=== PATIENT | female | born 1995 | race Caucasian/White ===

== ENCOUNTER 2022-06-21 00:01 | Inpatient (IN) | payer BC ==
[~2022-06-21] VITALS: Ht 172.7 cm; Wt 108.4 kg
--- NOTE | ~2022-06-21 | OR ---
[facility] [address] [place], [place] [address] Draft DATE OF OPERATION: 06/23/2022 SURGEON: Carlton Servin DO PREOPERATIVE DIAGNOSIS: Gestational hypertension at 37 weeks of gestation. POSTOPERATIVE DIAGNOSES: Term , delivered. Persistent occiput posterior. Gestational hypertension. PROCEDURE: Primary low-transverse . INSPECTOR MISSILE: Dr. Alston. ANESTHESIA: Epidural and spinal. BLOOD LOSS: 600 mL. FINDING: Term viable female weighing 6 pounds 1 ounce in the left occiput posterior position. Apgars 9 and 9 at 1 and 5 minutes respectively. Normal-appearing bilateral tubes and ovaries. INDICATIONS: The patient is a 27-year-old, G1, P0, who was admitted on 06/21/2022 for scheduled induction of labor for gestational hypertension. She received cervical ripening through the morning of 06/23/2022, at which point, amniotomy was performed yielding moderate amount of clear fluid. Pitocin was started and IUPC was placed. The patient initially made change, but dilation stalled a 6 cm. The patient reported severe or complete mental physical exhaustion and had inadequate pain relief despite numerous boluses of the epidural per anesthesia and was requesting primary delivery. Risks, benefits, and alternatives were discussed at length and she elected to proceed. PROCEDURE IN DETAIL: The patient was taken the operating room where she was given 2 g Ancef and 500 mg azithromycin. Mayes was already in place from the previous epidural. The epidural was PATIENT NAME: IMANI HARPER OPERATIVE REPORT DATE OF : 97 REPORT #: [id number] PHYSICIAN: CARLTON SERVIN DO PCP: NO PRIMARY CARE PHYSICIAN REPORT IS CONFIDENTIAL AND NOT TO BE RELEASED WITHOUT AUTHORIZATION [facility] [address] [place], [place] [address] Draft bolused, but found to be in adequate. Spinal was placed by anesthesia. The patient was positioned supine with a leftward tilt. A vaginal prep was performed. She was prepped and draped in normal sterile fashion. Adequate anesthesia with spinal was confirmed. An incision was made with a scalpel in the Pfannenstiel location and carried down to underlying layer of fascia with Bovie cautery cauterizing perforating vessels. As they were encountered, fascia was nicked in midline, extended laterally using Bovie cautery. The fascia was then grasped and elevated with Kelsey clamps. Underlying rectus muscle was dissected off bluntly and sharply with Gerard scissors, thus released. Superior margin of fascia was grasped and elevated. Underlying rectus muscles were dissected off bluntly and sharply with Gerard scissors. Peritoneum was entered bluntly and extended with lateral traction. The head was noted to be within the abdomen and not engaged in the pelvis at all. At this point, Steve retractor was placed. Hysterotomy was made with a scalpel. Uterus was entered bluntly and hysterotomy was extended with gentle digital traction. Infant's head was easily elevated to the level of the hysterotomy without any difficulty and delivered through without complication. Baby gave a strong spontaneous cry, was noted to have some caput from her occiput posterior presentation. Cord was doubly clamped and cut. Baby was handed off to waiting nursery team. Cord blood was collected for type and Sukumar. Placenta was manually expressed. Uterus was cleared of clots and debris and hysterotomy was closed in a double-layer closure with 0 Monocryl in a running locked fashion. then 0 Monocryl in an imbricating manner. The pelvis was suction irrigated with warm sterile saline. Hemostasis was noted. Tubes and ovaries were inspected and found to be normal as noted above. Steve retractor was removed. Peritoneum was closed in a running fashion with 2-0 Vicryl. Rectus muscles reapproximated midline with 0 Vicryl in a simple interrupted fashion. This was then suction irrigated with warm sterile saline. Perforating vessels were cauterized with Bovie cautery. Fascia was then closed in a running fashion with 0 Vicryl working from right apex to midline and left apex to midline meeting in the middle. Subcutaneous layer was then suction irrigated with warm sterile saline. Perforating vessels were cauterized with Bovie cautery. The subcu layer was reapproximated with 3-0 Vicryl in a running fashion. The skin was closed with suture. Sponge and instrument counts were correct x2. Uterus was Crede'd and noted to be hemostatic and firm and patient remained in the OR for placement of TAP blocks per Anesthesia. Of note, one dose IV Tylenol was given per Anesthesia after patient was noted to have an elevated temperature of 101.1 Fahrenheit. Carlton Servin DO EMZ/MODL PATIENT NAME: IMANI HARPER OPERATIVE REPORT DATE OF : 97 REPORT #: [id number] PHYSICIAN: CARLTON SERVIN DO PCP: NO PRIMARY CARE PHYSICIAN REPORT IS CONFIDENTIAL AND NOT TO BE RELEASED WITHOUT AUTHORIZATION [address] [place], [place] [address] [facility] /[id number] Copies: ~ PATIENT NAME: IMANI HARPER OPERATIVE REPORT DATE OF : 97 REPORT #: [id number] PHYSICIAN: CARLTON SERVIN DO PCP: NO PRIMARY CARE PHYSICIAN REPORT IS CONFIDENTIAL AND NOT TO BE RELEASED WITHOUT AUTHORIZATION
--- NOTE | 2022-06-21 11:57 | PR ---
[facility] [address] [facility] [place], [place] [address] Signed Progress Notes IP Datetime Report Generated by CPN: 06/21/2022 11:56 PROGRESS NOTES: [id number] Impression: Reassuring Heart Rate; Gest. HTN/PreEclampsia/Eclampsia Plan: Continue Present Management; Cervical Ripening VITAL SIGNS: [id number] EXAM: [id number] Dilatation: 0.0 Effacement: 50 Station: -3 Contractions: acontractile MEMBRANES: [id number] Membranes Status: Intact Comments: Reviewed strip. Pt reports cramping is slightly more painful. Plan: after reactive NST, ok to ambulate, try birthing ball, bath. Repeat NST after one hour, if contractions have spaced continue cervical ripening. FETUS A: [id number] FHR Baseline: 130 Variability: Moderate 6-25bpm Accelerations: 15X15 Decelerations: None FHR Category: Category I Presentation: Vertex Comments on Fetus A: No evidence of acidemia FETUS B: [id number] Signing Physician: Carlton Servin DO Copies: ~ *Electronically Signed* 06/21/22 1156 CARLTON SERVIN DO PATIENT NAME: IMANI HARPER PROGRESS NOTE DATE OF : 97 PHYSICIAN: CARLTON SERVIN DO RPT #: [id number] REPORT IS CONFIDENTIAL AND NOT TO BE RELEASED WITHOUT AUTHORIZATION
--- NOTE | 2022-06-21 19:56 | PR ---
[facility] [address] [place], [place] [address] Signed Progress Notes IP Datetime Report Generated by CPBeatriz: 06/21/2022 19:56 PROGRESS NOTES: [id number] Impression: Reassuring Heart Rate Plan: Continue Present Management; Cervical Ripening VITAL SIGNS: [id number] EXAM: [id number] Dilatation: 1.0 Effacement: 50 Station: -3 Contractions: acontractile MEMBRANES: [id number] Membranes Status: Intact Comments: Pt comfortable, contraction discomfort 3/10 compared with 6-7/10 earlier in the day. Reviewed options at this point particularly cook catheter vs continued cytotec. Pt elects to proceed with cytotec, hoping to get some sleep overnight. Will continue with cytotec - if mariam too frequently, allow contraction frequency to decrease before additional doses. BP remain normotensive FETUS A: [id number] FHR Baseline: 130 Variability: Moderate 6-25bpm Accelerations: 15X15 Decelerations: None FHR Category: Category I Presentation: Vertex Comments on Fetus A: No evidence of acidemia FETUS B: [id number] Signing Physician: Carlton Servin DO Copies: ~ *Electronically Signed* 06/21/221955 CARLTON SERVIN DO PATIENT NAME: IMANI HARPER PROGRESS NOTE DATE OF : 97 PHYSICIAN: CARLTON SERVIN #: [id number] REPORT IS CONFIDENTIAL AND NOT TO BE RELEASED WITHOUT AUTHORIZATION
--- NOTE | 2022-06-22 07:42 | PR ---
[facility] [address] [facility] [place], [place] [address] Signed Progress Notes IP Datetime Report Generated by CPN: 06/22/2022 07:42 PROGRESS NOTES: [id number] Impression: Reassuring Heart Rate Plan: Continue Present Management VITAL SIGNS: [id number] EXAM: [id number] Dilatation: 1.5 Effacement: 90 Station: -2 Contractions: acontractile MEMBRANES: [id number] Membranes Status: Intact Comments: Pt feeling well rested after sleep overnight. Cervix continuing to ripen. Will have light snack then discussed AROM vs cytotec, plan for AROM after light breakfast FETUS A: [id number] FHR Baseline: 130 Variability: Moderate 6-25bpm Accelerations: 15X15 Decelerations: None FHR Category: Category I Presentation: Vertex Comments on Fetus A: No evidence of acidemia FETUS B: [id number] Signing Physician: Carlton Servin DO Copies: ~ *Electronically Signed* 06/22/22 0742 CARLTON SERVIN DO PATIENT NAME: MEREDITHIMANIIR PROGRESS NOTE DATE OF : 97 PHYSICIAN: CARLTON SERVIN DO RPT #: [id number] REPORT IS CONFIDENTIAL AND NOT TO BE RELEASED WITHOUT AUTHORIZATION
--- NOTE | 2022-06-22 08:53 | PR ---
[facility] [address] [facility] [place], [place] [address] Signed Progress Notes IP Datetime Report Generated by CPN: 06/22/2022 08:53 PROGRESS NOTES: [id number] Impression: Reassuring Heart Rate Plan: Continue Present Management; Cervical Ripening VITAL SIGNS: [id number] EXAM: [id number] Dilatation: 1.5 Effacement: 90 Station: -2 Contractions: acontractile MEMBRANES: [id number] Membranes Status: Intact Comments: Reviewed my check with pt, recommend additional cytotec prior to AROM. Will proceed. FETUS A: [id number] FHR Baseline: 130 Variability: Moderate 6-25bpm Accelerations: 15X15 Decelerations: None FHR Category: Category I Presentation: Vertex Comments on Fetus A: No evidence of acidemia FETUS B: [id number] Signing Physician: Carlton Servin DO Copies: ~ *Electronically Signed* 06/22/22 0853 CARLTON SERVIN DO PATIENT NAME: IMANI HARPER PROGRESS NOTE DATE OF : 97 PHYSICIAN: CARLTON SERVIN DO [facility] #: [id number] REPORT IS CONFIDENTIAL AND NOT TO BE RELEASED WITHOUT AUTHORIZATION
--- NOTE | 2022-06-22 13:14 | PR ---
[facility] [address] [facility] [place], [place] [address] Signed Progress Notes IP Datetime Report Generated by CPN: 06/22/2022 13:13 PROGRESS NOTES: [id number] Impression: Reassuring Heart Rate Plan: Continue Present Management; Cervical Ripening VITAL SIGNS: [id number] EXAM: [id number] Dilatation: 1.0 Effacement: 50 Station: -2 Contractions: acontractile MEMBRANES: [id number] Membranes Status: Intact Comments: Reviewed progress and options for continued induction. Offered AROM vs cook catheter, we agreed to continue with cytotec for cervical ripening at this time. FETUS A: [id number] FHR Baseline: 130 Variability: Moderate 6-25bpm Accelerations: 15X15 Decelerations: None FHR Category: Category I Presentation: Vertex Comments on Fetus A: No evidence of acidemia FETUS B: [id number] Signing Physician: Carlton Servin DO Copies: ~ *Electronically Signed* 06/22/22 1313 CARLTON SERVIN DO PATIENT NAME: IMANI HARPERIR PROGRESS NOTE DATE OF : 97 PHYSICIAN: CARLTON SERVIN DO RPT #: [id number] REPORT IS CONFIDENTIAL AND NOT TO BE RELEASED WITHOUT AUTHORIZATION
--- NOTE | 2022-06-22 18:19 | PR ---
[facility] [address] [facility] [place], [place] [address] Signed Progress Notes IP Datetime Report Generated by CPN: 06/22/2022 18:19 PROGRESS NOTES: [id number] Impression: Reassuring Heart Rate Plan: Continue Present Management; Cervical Ripening VITAL SIGNS: [id number] EXAM: [id number] Dilatation: 1.0 Effacement: 50 Station: -2 Contractions: acontractile MEMBRANES: [id number] Membranes Status: Intact Comments: Denies pain. Continue cytotec, reassess after next dose, discussed recommendation for cook catheter if able to place. Pt willing to consider FETUS A: [id number] FHR Baseline: 130 Variability: Moderate 6-25bpm Accelerations: 15X15 Decelerations: None FHR Category: Category I Presentation: Vertex Comments on Fetus A: No evidence of acidemia FETUS B: [id number] Signing Physician: Carlton Servin DO Copies: ~ *Electronically Signed* 06/22/22 1819 CARLTON SERVIN DO PATIENT NAME: IMANI HARPER PROGRESS NOTE DATE OF : 97 PHYSICIAN: CARLTON SERVIN DO RPT #: [id number] REPORT IS CONFIDENTIAL AND NOT TO BE RELEASED WITHOUT AUTHORIZATION
--- NOTE | 2022-06-22 20:27 | PR ---
[facility] [address] [facility] [place], [place] [address] Signed Progress Notes IP Datetime Report Generated by CPN: 06/22/2022 20:26 PROGRESS NOTES: [id number] Impression: Reassuring Heart Rate Other Procedures: Cook catheter placement Plan: Cervical Ripening VITAL SIGNS: [id number] EXAM: [id number] Dilatation: 1.0 Effacement: 50 Station: -2 Contractions: acontractile MEMBRANES: [id number] Membranes Status: Intact Comments: Cook catheter placed without difficulty, 40mL sterile saline in each balloon, add additional 20mL to each balloon every 20 minutes until 80mL in each balloon. Plan to remove in 12h or when it falls out. Will hold cytotec overnight. FETUS A: [id number] FHR Baseline: 130 Variability: Moderate 6-25bpm Accelerations: 15X15 Decelerations: None FHR Category: Category I Presentation: Vertex Comments on Fetus A: No evidence of acidemia FETUS B: [id number] Signing Physician: Carlton Servin DO Copies: ~ *Electronically Signed* 06/22/222025 CARLTON SERVIN DO PATIENT NAME: IMANI HARPER PROGRESS NOTE DATE OF : 97 PHYSICIAN: CARLTON SERVIN DO RPT #: [id number] REPORT IS CONFIDENTIAL AND NOT TO BE RELEASED WITHOUT AUTHORIZATION
--- NOTE | 2022-06-23 09:03 | PR ---
[facility] [address] [facility] [place], [place] [address] Signed Progress Notes IP Datetime Report Generated by CPN: 06/23/2022 09:03 PROGRESS NOTES: [id number] Impression: Reassuring Heart Rate Procedures: Artificial ROM Other Procedures: Cook catheter placement Plan: Cervical Ripening VITAL SIGNS: [id number] EXAM: [id number] Dilatation: 1.0 Effacement: 50 Station: -2 Contractions: acontractile MEMBRANES: [id number] Membranes Status: Ruptured Comments: Generally comfortable with epidural, with window on right side. Cook catheter removed, cervix 2 / 70/ -3. AROM performed yielding large amount clear fluid. Plan recheck in 1 hour, if no change then start pitocin. FETUS A: [id number] FHR Baseline: 130 Variability: Moderate 6-25bpm Accelerations: 15X15 Decelerations: None FHR Category: Category I Presentation: Vertex Comments on Fetus A: No evidence of acidemia FETUS B: [id number] Signing Physician: Carlton Servin DO Copies: ~ *Electronically Signed* 06/23/22 0903 CARLTON SERVIN DO PATIENT NAME: IMANI HARPER PROGRESS NOTE DATE OF : 97 PHYSICIAN: CARLTON SERVIN DO RPT #: [id number] REPORT IS CONFIDENTIAL AND NOT TO BE RELEASED WITHOUT AUTHORIZATION
--- NOTE | 2022-06-23 10:35 | PR ---
[facility] [address] [place], [place] [address] Signed Progress Notes IP Datetime Report Generated by CPN: 06/23/2022 10:34 PROGRESS NOTES: [id number] Impression: Reassuring Heart Rate Procedures: Intrauterine Pressure Catheter Other Procedures: Cook catheter placement Plan: Cervical Ripening Other Plans: start pitocin VITAL SIGNS: [id number] EXAM: [id number] Dilatation: 2.0 Effacement: 70 Station: -3 Contractions: acontractile MEMBRANES: [id number] Membranes Status: Ruptured Comments: Pt much more comfortable following epidural re-bolus, able to get accurate cervical check: 3/70/-3, soft, far posterior. IUPC placed without difficulty, contractions not adequate, recommend low-dose pitocin. Pt in agreement with plan. FETUS A: [id number] FHR Baseline: 130 Variability: Moderate 6-25bpm Accelerations: 15X15 Decelerations: None FHR Category: Category I Presentation: Vertex Comments on Fetus A: No evidence of acidemia FETUS B: [id number] Signing Physician: Carlton Servin DO Copies: ~ *Electronically Signed* 06/23/22 1034 CARLTON SERVIN DO PATIENT NAME: IMANI HARPER PROGRESS NOTE DATE OF : 97 PHYSICIAN: CARLTON SERVIN DO RPT #: [id number] REPORT IS CONFIDENTIAL AND NOT TO BE RELEASED WITHOUT AUTHORIZATION
--- NOTE | 2022-06-23 16:11 | PR ---
[facility] [address] [facility] [place] [address] Signed Progress Notes IP Datetime Report Generated by CPN: 06/23/2022 16:11 PROGRESS NOTES: [id number] Impression: Reassuring Heart Rate Procedures: Intrauterine Pressure Catheter Other Procedures: Cook catheter placement Plan: Continue Present Management Other Plans: start pitocin VITAL SIGNS: [id number] EXAM: [id number] Dilatation: 5.0 Effacement: 80 Station: -3 Contractions: acontractile MEMBRANES: [id number] Membranes Status: Ruptured Comments: Pt painful with contractions. Contractions not quite adequate, continue pitocin FETUS A: [id number] FHR Baseline: 130 Variability: Moderate 6-25bpm Accelerations: 15X15 Decelerations: None FHR Category: Category I Presentation: Vertex Comments on Fetus A: No evidence of acidemia FETUS B: [id number] Signing Physician: Carlton Servin DO Copies: ~ *Electronically Signed* 06/23/22 1611 CARLTON SERVIN DO PATIENT NAME: MEREDITHGABRIELEIMANILAWRENCE TREVINO PROGRESS NOTE DATE OF : 97 PHYSICIAN: CARLTON SERVIN DO RPT #: [id number] REPORT IS CONFIDENTIAL AND NOT TO BE RELEASED WITHOUT AUTHORIZATION
--- NOTE | 2022-06-23 19:14 | PR ---
[facility] [address] [facility] [place], [place] [address] Signed Progress Notes IP Datetime Report Generated by CPN: 06/23/2022 19:14 PROGRESS NOTES: [id number] Impression: Reassuring Heart Rate Procedures: Intrauterine Pressure Catheter Other Procedures: Cook catheter placement Plan: Continue Present Management Other Plans: start pitocin VITAL SIGNS: L4359494 EXAM: [id number] Dilatation: 6.0 Effacement: 80 Station: -2 Contractions: acontractile MEMBRANES: [id number] Membranes Status: Ruptured Comments: Reviewed current status with pt. She is less uncomfortable after epidural rebolus, rating pain 6/10 instead of 8/10, and would like to try to nap then recheck cervix. FETUS A: [id number] FHR Baseline: 130 Variability: Moderate 6-25bpm Accelerations: 15X15 Decelerations: None FHR Category: Category I Presentation: Vertex Comments on Fetus A: No evidence of acidemia FETUS B: [id number] Signing Physician: Carlton Servin DO Copies: ~ *Electronically Signed* 06/23/221913 CARLTON SERVIN DO PATIENT NAME: IMANI HARPER PROGRESS NOTE DATE OF : 97 PHYSICIAN: CARLTON SERVIN DO RPT #: [id number] REPORT IS CONFIDENTIAL AND NOT TO BE RELEASED WITHOUT AUTHORIZATION
--- NOTE | 2022-06-23 20:22 | PR ---
[facility] [address] [place], [place] [address] Signed Progress Notes IP Datetime Report Generated by CPBeatriz: 06/23/2022 20:22 PROGRESS NOTES: [id number] Impression: Reassuring Heart Rate Procedures: Intrauterine Pressure Catheter Other Procedures: Cook catheter placement Plan: Deliver- Section Other Plans: start pitocin Informed Consent Obtain: Section Delivery; Risks, Benefits and Alternatives Discussed VITAL SIGNS: Z9599163 EXAM: [id number] Dilatation: 6.0 Effacement: 80 Station: -2 Contractions: acontractile MEMBRANES: [id number] Membranes Status: Ruptured Comments: Pt requesting elective delivery. Induction started 06/21 at 0001, she has had pain control challenges for the last 24h, and is emotionally and physically exhausted and remote from delivery. We reviewed risks of at length including bleeding, infection, pain, prolonged healing, damage to surrounding structures, intraabdominal scarring complicating future surgeries/ pregnancies, need for referral to outside facility if TOLAC is desired in the future. Reviewed risk of inadequate anesthesia with epidural bolus requiring general anesthesia. Questions and pt and FOB answered to the best of my ability to their apparent satisfaction and they elected to proceed. FETUS A: [id number] FHR Baseline: 130 Variability: Moderate 6-25bpm Accelerations: 15X15 Decelerations: None FHR Category: Category I Presentation: Vertex Comments on Fetus A: No evidence of acidemia FETUS B: [id number] Signing Physician: Carlton Servin DO *Electronically Signed* 06/23/222021 CARLTON SERVIN DO PATIENT NAME: IMANI HARPER PROGRESS NOTE DATE OF : 97 PHYSICIAN: CARLTON SERVIN DO RPT #: [id number] REPORT IS CONFIDENTIAL AND NOT TO BE RELEASED WITHOUT AUTHORIZATION [facility] [address] [address] [place] [address] Signed Copies: ~ *Electronically Signed* 06/23/222021 CARLTON SERVIN DO PATIENT NAME: IMANI HARPER PROGRESS NOTE DATE OF : 97 PHYSICIAN: CARLTON SERVIN DO RPT #: [id number] REPORT IS CONFIDENTIAL AND NOT TO BE RELEASED WITHOUT AUTHORIZATION
--- NOTE | 2022-06-23 22:28 | NUR ---
06/23/222227 Celia Vidal 214 PT ARRIVED IN PACU WIDE AWAKE WITH NO C/O'S. 2149 FBC RN HELPING MOM BREASTFEED BABY. PT'S SPOUSE AT BEDSIDE. 2199 CONTINUES TO BREASTFEED WITH NO C/O'S. 2214 REPORT GIVEN TO RN. BED PLUGGED IN.
--- NOTE | 2022-06-24 12:41 | PR ---
[facility] [address] [facility] [place], [place] [address] Signed PP Progress Notes Datetime Report Generated by CPN: 06/24/2022 12:41 SUBJECTIVE: [id number] Pain: Within Normal Limits Nausea/Vomiting: Denies Flatus: Yes Bowel Movement: No Vital Signs: [id number] Vital Signs: Reviewed; Within Normal Limits Cardiovascular: Normal Respiratory: Normal Abdomen/Uterus: Normal Extremities: Normal Progress: Normal Exam Comments: NAD, sitting up in bed RRR No dyspnea/ retractions Extremities with 1+ BLLE edema IMPRESSION/PLAN/PROCEDURES: [id number] Impression: Normal Progression; Induced Hypertension Plan: Continue Present Management Progress Notes: Pt is a 27 yo POD#1 s/p elective PLTCS (occiput posterior) -progressing well postop, has dangled at bedside, denies incisional pain -lochia moderate -pt feeling rested, tolerated pashto toast at breakfast well, denies complaints/ concerns and is hoping to ambulate soon -BP normotensive Continue routine postop care Signing Physician: Carlton Servin DO Copies: ~ *Electronically Signed* 06/24/22 1241 CARLTON SERVIN DO PATIENT NAME: IMANI HARPER PROGRESS NOTE DATE OF : 97 PHYSICIAN: CARLTON SERVIN DO RPT #: [id number] REPORT IS CONFIDENTIAL AND NOT TO BE RELEASED WITHOUT AUTHORIZATION
--- NOTE | 2022-06-25 07:29 | PR ---
[facility] [address] [facility] [place], [place] [address] Signed PP Progress Notes Datetime Report Generated by GREGORIA: 06/25/2022 07:29 SUBJECTIVE: [id number] Pain: Within Normal Limits Nausea/Vomiting: Denies Flatus: Yes Bowel Movement: No Vital Signs: [id number] Vital Signs: Reviewed; Within Normal Limits Cardiovascular: Normal Respiratory: Normal Abdomen/Uterus: Normal Lochia: Normal Extremities: Normal Incision: Normal Progress: Normal Exam Comments: NAD, sitting in chair at bedside RRR No dyspnea/ retractions Abd SNTND, FFBU Pfannensteil incision c/d/i, no swelling/ erythema, margins well-approximated Extremities: 1+ BLLE IMPRESSION/PLAN/PROCEDURES: [id number] Impression: Normal Progression; Induced Hypertension Plan: Continue Present Management; Consult Progress Notes: Pt is a 27 yo POD#2 s/p PLTCS -MIOL for gHTN, asymptomatic through admission, no severe BP -More painful this morning, but progressing well -Ambulating, voiding, tolerating regular diet, +flatus, awaiting BM, lochia light -Expressing milk, difficulty with latch Continue postop care Anticipate DC to home tomorrow Signing Physician: Carlton Servin DO *Electronically Signed* 06/25/22 0729 CARLTON SERVIN DO PATIENT NAME: IMANI HARPER PROGRESS NOTE DATE OF : 97 PHYSICIAN: CARLTON SERVIN DO [facility] #: [id number] REPORT IS CONFIDENTIAL AND NOT TO BE RELEASED WITHOUT AUTHORIZATION
--- NOTE | 2022-06-26 07:54 | PR ---
[facility] [address] [place] [address], [place] [address] Signed PP Progress Notes Datetime Report Generated by GREGORIA: 06/26/2022 07:54 SUBJECTIVE: [id number] Pain: Within Normal Limits Nausea/Vomiting: Denies Flatus: Yes Bowel Movement: No Vital Signs: [id number] Vital Signs: Reviewed; Within Normal Limits Cardiovascular: Normal Respiratory: Normal Abdomen/Uterus: Normal Lochia: Normal Breasts: Normal Extremities: Normal Incision: Normal Progress: Normal Exam Comments: NAD, sitting in chair at bedside nursing baby using nipple shield RRR No dyspnea/ retractions abd SNTND, FFBU Incision: c/d/i, margins well-approximated Ext: 2+ BLLE edema IMPRESSION/PLAN/PROCEDURES: [id number] Impression: Normal Progression; Induced Hypertension Plan: Remove Elizabeth; Discharge Progress Notes: 27 yo POD#3 s/p PLTCS -MIOL for gHTN, BP normotensive since delivery, asymptomatic -Progressing well postop/ , milestones met -Pain well-controlled with orals, lochia light, ambulating, voiding, tolerating regular diet Plan: -staple removal, DC to home (boarder status if baby remains inpatient), pt to remove steri strips on Saturday (5d) -follow-up in office as outpatient on Saturday for BP check -Continue , outpatient support as needed -discussed NFP for contraception including challenges during , reviewed importance of minimum 12 months interconception interval *Electronically Signed* 06/26/22 0754 CARLTON SERVIN DO PATIENT NAME: IMANI HARPER PROGRESS NOTE DATE OF : 97 PHYSICIAN: CARLTON SERVIN DO RPT #: [id number] REPORT IS CONFIDENTIAL AND NOT TO BE RELEASED WITHOUT AUTHORIZATION [address] [place], [place] [address] Signed Signing Physician: Carlton Servin DO Copies: ~ *Electronically Signed* 06/26/22 0754 CARLTON SERVIN DO PATIENT NAME: IMANI HARPER PROGRESS NOTE DATE OF : 97 PHYSICIAN: CARLTON SERVIN DO RPT #: [id number] REPORT IS CONFIDENTIAL AND NOT TO BE RELEASED WITHOUT AUTHORIZATION
== END 2022-06-26 10:50 | disposition home or self-care (01) | DRG 788 ==
LOC: FBC 00:01
PROVIDERS: ADMIT Obstetrics & Gynecology; ATTEND Obstetrics & Gynecology
PROC: 0U7C7ZZ Dilation of Cervix, Via Natural or Artificial Opening (ICD-10-PCS; 2022-06-21)
PROC: 10907ZC Drainage of Amniotic Fluid, Therapeutic from Products of Conception, Via Natural or Artificial Opening (ICD-10-PCS; 2022-06-21)
PROC: 00HU33Z Insertion of Infusion Device into Spinal Canal, Percutaneous Approach (ICD-10-PCS; 2022-06-21)
PROC: 3E0R3BZ Introduction of Anesthetic Agent into Spinal Canal, Percutaneous Approach (ICD-10-PCS; 2022-06-21)
PROC: 10D00Z1 Extraction of Products of Conception, Low, Open Approach (ICD-10-PCS; principal; 2022-06-23 20:30)
DX: O13.4 Gestational [pregnancy-induced] hypertension without significant proteinuria, complicating childbirth (principal); Z3A.37 37 weeks gestation of pregnancy; Z37.0 Single live birth; Z67.40 Type O blood, Rh positive; O99.214 Obesity complicating childbirth
CPT/HCPCS: 01961; 36415; 76942; 80053; 82565; 82570; 83615; 84156; 84550; 85027; 86850; 86900; 86901; A9270; J0131; J0456; J0690; J1100; J1650; J1885; J2250; J2274; J2405; J2590; J2765; J2795; J3010; J7121

== ENCOUNTER 2022-07-02 21:12 | Emergency (ER) | payer BC ==
[~2022-07-02] VITALS: Ht 182.9 cm; Wt 101.0 kg
[2022-07-04] MEDS ORDERED: METHERGINE (02:21)
== END 2022-07-02 22:08 | disposition home or self-care (01) ==
LOC: ED 21:12
DX: O72.2 Delayed and secondary postpartum hemorrhage (principal); Z91.018 Allergy to other foods; Z91.040 Latex allergy status
CPT/HCPCS: 36415; 80053; 85025; 85610; 85730; 86850; 86900; 86901; 99284; J7121

== ENCOUNTER 2024-05-26 11:32 | Inpatient (IN) | payer BC ==
[~2024-05-26] VITALS: Ht 172.7 cm; Wt 111.1 kg
--- NOTE | ~2024-05-26 | OR ---
[facility] [address], [place] [address] Draft DATE OF OPERATION: 06/11/2024 SURGEON: Melvina Alston DO PREOPERATIVE DIAGNOSES: 1. Term intrauterine at 37 weeks and three days. 2. Preeclampsia without severe features. 3. History of hemorrhage. 4. History of prior . POSTOPERATIVE DIAGNOSES: 1. Term intrauterine at 37 weeks and three days. 2. Preeclampsia without severe features. 3. History of hemorrhage. 4. History of prior . PROCEDURE PERFORMED: Repeat low transverse section. ASSISTANT PROFESSOR OF SPANISH: ANESTHESIA: Spinal with postoperative TAP blocks. QUANTITATIVE BLOOD LOSS: 251 mL. COMPLICATIONS: None. DRAINS: Mayes to gravity. FINDINGS: Delivery of viable female , 6 pounds 0 ounces with Apgars of 8 and 9 born in the BARBARA position with no nuchal cord. Clear amniotic fluid. Normal uterus, tubes, and ovaries. Hemostasis at the end the procedure. INDICATIONS: PATIENT NAME: IMANI GUTIERREZ OPERATIVE REPORT DATE OF : 97 REPORT #: [id number] PHYSICIAN: MELVINA ALSTON) PCP: LITO MARAVILLA PA-C REPORT IS CONFIDENTIAL AND NOT TO BE RELEASED WITHOUT AUTHORIZATION [address] [address] [place] Ms. Gutierrez is a very pleasant 29-year-old G2, P1 with IUP at 37 weeks three days gestation, who presented for repeat low transverse section. complicated by preeclampsia without severe features, history of delayed hemorrhage, possibly due to retained products of conception requiring multiple interventions and developing DIC in her last . The patient was consented for repeat low transverse section. The patient has two large-bore IVs in place. Two units of packed red blood cells typed and crossed and detailed perioperative plan was in place. Risks, benefits, and alternatives were discussed in detail with the patient. The patient understands and wishes to proceed with the procedure. DESCRIPTION OF PROCEDURE: The patient was taken to the OR, where a time-out was performed to confirm correct patient and correct procedure. Spinal anesthesia was adequately established. The patient was prepped and draped in the supine position with a bump on the right hip. Mayes catheter was inserted. Ancef 2 g preoperatively was administered and no heparin was indicated. Once spinal was noted to be adequate, a Pfannenstiel skin incision was made through the prior scar and carried down to the to the fascia. The fascia was nicked in the midline. Fascial incision was extended bilaterally using curved Gerard scissors. Fascia was grasped with Kelsey's, elevated and the underlying rectus dissected off bluntly and sharply. The rectus was divided in the midline and the peritoneum was entered bluntly. Peritoneal incision was extended cephalad and caudad using blunt and sharp dissection. Steve self retractor was placed and the lower uterine segment identified. Normal appearance of lower uterine segment was appreciated. Hysterotomy was performed using a surgical scalpel and the amnion was ruptured for clear fluid. Hysterotomy was extended bilaterally using blunt dissection. The surgeon's hand was placed in the uterine cavity and the head elevated and delivered in the BARBARA position with the assistance of fundal pressure. No nuchal cord. was vigorous and cried and delayed cord clamping was observed. Cord blood was then obtained for routine analysis after the baby was handed to the waiting pediatric team for further care. The placenta was expressed, intact with centrally inserted three-vessel cord. Careful attention was performed to ensure removal of all products of conception. Pitocin was administered per protocol and tranexamic acid 1 g IV was administered per Hematology recommendations. The uterus was then closed in two layers of 0 Monocryl, the 1st being a running locked layer and the 2nd being an imbricating layer in the vertical manner. Excellent hemostasis was appreciated. The pelvis was irrigated and found to be hemostatic. Normal uterus, tubes, and ovaries were appreciated. The peritoneum was reapproximated using 3-0 Vicryl in a running nonlocked manner. The rectus was then plicated loosely in the midline with three interrupted sutures of 0 Vicryl. The rectus was examined and made hemostatic with judicious use of Bovie electrocautery. Fascia was then reapproximated using 0 Vicryl in a running nonlocked manner. Subcu was made hemostatic with Bovie electrocautery and was irrigated. Subcu was then reapproximated using 2-0 Vicryl in a running nonlocked PATIENT NAME: IMANI GUTIERREZ OPERATIVE REPORT DATE OF : 97 REPORT #: [id number] PHYSICIAN: MELVINA ALSTON) PCP: LITO MARAVILLA PA-C REPORT IS CONFIDENTIAL AND NOT TO BE RELEASED WITHOUT AUTHORIZATION [facility] [address] [place] [id number] [place] manner. Skin was closed with surgical charity. The uterus was Crede'd for scant amount of blood. The patient remained in the OR for postoperative TAP block. Sponge, needle and instrument counts was correct x2 at the end of the procedure. DO RANDY Colindres/MODL /[id number] Copies: ~ PATIENT NAME: IMANI GUTIERREZ OPERATIVE REPORT DATE OF : 97 REPORT #: [id number] PHYSICIAN: MELVINA ALSTON DO (JD) PCP: LITO MARAVILLA PA-C REPORT IS CONFIDENTIAL AND NOT TO BE RELEASED WITHOUT AUTHORIZATION
[~2024-05-26 11:32] MED LIST: IRON325 M1 PO; METHERGINE
[2024-06-10] MEDS ORDERED: LACTATED RINGER'S 2,000 ML IV PRN (14:45)
[2024-06-10] MEDS ORDERED: LACTATED RINGER'S 1,000 ML IV SCH (14:45)
[2024-06-11] MEDS ORDERED: LACTATED RINGER'S 1,000 ML IV PRN (05:15)
[2024-06-11 05:59] LABS: HEMATOCRIT 37.9 % (35.0-50.0); HEMOGLOBIN 12.9 g/dL (12.0-18.0); MCH 29.2 (27-36); MCHC 34.1 g/dl (30-36); MCV 85.6 fl (81-99); RBC 4.42 M/ul (4.3-5.7); RDW 13.9 (10.5-15.0)
[2024-06-11 06:21] LABS: AMPHETAMINES, URINE NEGATIVE (NEGATIVE); BARBITURATES, URINE NEGATIVE (NEGATIVE); BENZODIAZEPINE, URINE NEGATIVE (NEGATIVE); BUPRENORPHINE, URINE NEGATIVE (NEGATIVE); CANNABINOID, URINE NEGATIVE (NEGATIVE); COCAINE, URINE NEGATIVE (NEGATIVE); ECSTASY, URINE NEGATIVE (NEGATIVE); FENTANYL, URINE NEGATIVE (NEGATIVE); METHADONE, URINE NEGATIVE (NEGATIVE); OPIATES, URINE NEGATIVE (NEGATIVE); OXYCODONE, URINE NEGATIVE (NEGATIVE); PHENCYCLIDINE, URINE NEGATIVE (NEGATIVE)
[2024-06-11 06:25] VITALS: BP 130/82
[2024-06-11] MEDS ORDERED: SOD+POT BICARB/CITRIC ACID 2 EA TABLET.EFF PO SCH (07:00)
[2024-06-11] MEDS ORDERED: CEFAZOLIN SODIUM 2 GM/20 ML SYR IV SCH (07:00)
[2024-06-11] MEDS ORDERED: OXYTOCIN 10 UNITS/ML VIAL ONE (07:07)
[2024-06-11] MEDS ORDERED: BUPIVACAINE 0.75% IN DEXTROSE 2 ML AMP ONE (07:07)
[2024-06-11] MEDS ORDERED: ondansetron HCL 4 MG/2 ML VIAL ONE (07:07)
[2024-06-11] MEDS ORDERED: LIDOCAINE HCL 2% 5 ML SDV ONE (07:07)
[2024-06-11] MEDS ORDERED: MORPHINE SULFATE 1 MG/ML VIAL ONE (07:11)
[2024-06-11] MEDS ORDERED: fentaNYL citrate 100 MCG/2 ML VIAL ONE (07:11)
[2024-06-11 07:17] LABS: ABO O; ANTIBODY SCREEN NEGATIVE; IS CROSSMATCH COMPATIBLE; RH POSITIVE
[2024-06-11] MEDS ORDERED: PHENYLEPHRINE HCL 10 MG/ML VIAL ONE (07:36)
[2024-06-11] MEDS ORDERED: SODIUM CHLORIDE 0.9% 20 ML IV ONE ×2 (07:36→08:12)
[2024-06-11] MEDS ORDERED: TRANEXAMIC ACID 1,000 MG/10 ML AMP ONE (07:48)
[2024-06-11] MEDS ORDERED: Ropivacaine HCl 0.5% 30 ML VIAL ONE (08:12)
[2024-06-11] MEDS ORDERED: dexmedeTOMIDine HCl 200 MCG/2 ML VIAL ONE (08:12)
[2024-06-11] MEDS ORDERED: DEXAMETHASONE SOD PHOS 4 MG/ML VIAL ONE (08:12)
[2024-06-11] MEDS ORDERED: NALOXONE HCL 0.4 MG SYR IV PRN ×2 (08:45→09:00)
[2024-06-11] MEDS ORDERED: ondansetron HCL 4 MG/2 ML VIAL IV PRN ×2 (08:45→09:00)
[2024-06-11] MEDS ORDERED: IBLOOD GLUCOSE TEST STRIP 1 EA TEST VI PRN (08:45)
[2024-06-11] MEDS ORDERED: fentaNYL citrate 50 MCG/ML SDV IV PRN (08:45)
[2024-06-11] MEDS ORDERED: KETOROLAC TROMETHAMINE 30 MG/ML VIAL IV PRN ×2 (08:45→09:00)
[2024-06-11] MEDS ORDERED: diphenhydrAMINE HCL 25 MG CAP PO PRN (09:00)
[2024-06-11] MEDS ORDERED: HYDROmorphone HCL 1 MG/ML SYR IV PRN (09:00)
[2024-06-11] MEDS ORDERED: diphenhydrAMINE HCL 50 MG/ML VIAL IV PRN (09:00)
[2024-06-11] MEDS ORDERED: LACTATED RINGER'S 1,000 ML IV SCH (09:07)
--- NOTE | 2024-06-11 09:13 | NUR ---
06/11/24 0913 Lili Lopez 0902-PATIENT ARRIVED TO ROOM 104 FOR RECOVERY. PATIENT AWAKE DENIES PAIN OR NAUSEA. PATIENT FEEDING BABY TO LEFT BREAST. AT BEDSIDE. RIGHT ARM IV INFUSING WITH LR PITOCIN INTACT. FUNDUS 1 BELOW UMBILICUS SOFT FIRM PRESSURE APPLIED. LIGHT RUBRA DRAINAGE ON ANGUS PAD. SR. ESCOBEDO CATHETER DRAINING YELLOW URINE-LATEX FREE. SCDS IN PLACE. 0912-PATIET FEEDING BABY TO LEFT BREAST DENIES PAIN OR NAUSEA. RA 97% RR EVEN
[2024-06-11] MEDS ORDERED: PROMETHAZINE HCL 25 MG TAB PO PRN (09:15)
[2024-06-11] MEDS ORDERED: HYDROCODONE/ACETA 5/325 TAB PO PRN ×2 (09:15→22:15)
[2024-06-11] MEDS ORDERED: OXYTOCIN/0.9 % SODIUM CHLORIDE 500 ML IV SCH (09:15)
[2024-06-11] MEDS ORDERED: METOCLOPRAMIDE HCL 10 MG/2 ML SDV IV PRN (09:15)
[2024-06-11] MEDS ORDERED: OXYCODONE HCL 5 MG TAB PO PRN ×2 (09:15→22:15)
[2024-06-11] MEDS ORDERED: PROMETHAZINE HCL 25 MG SUPP PR PRN (09:15)
[2024-06-11] MEDS ORDERED: PROCHLORPERAZINE EDISYLATE 10 MG/2 ML VIAL IV PRN (09:15)
[2024-06-11] MEDS ORDERED: OXYCODONE/APAP 5/325 TAB PO PRN ×2 (09:15→22:15)
[2024-06-11] MEDS ORDERED: MEASLES,MUMPS&RUBELLA VACCINE 1 VIAL VIAL SUB-Q SCH (09:15)
[2024-06-11] MEDS ORDERED: bisacodyL 10 MG SUPP PR PRN (09:15)
[2024-06-11 09:34] VITALS: BP 101/65
[2024-06-11] MEDS ORDERED: SIMETHICONE 80 MG CHEW PO SCH (11:00)
[2024-06-11] MEDS ORDERED: KETOROLAC TROMETHAMINE 30 MG/ML VIAL IV SCH (14:00)
[2024-06-11] MEDS ORDERED: TRANEXAMIC ACID 1,000 MG/10 ML AMP PO SCH (15:00)
[2024-06-11] MEDS ORDERED: SENNOSIDES/DOCUSATE 1 EA TAB PO SCH (21:00)
[2024-06-12] MEDS ORDERED: TRANEXAMIC ACID 650 MG TABLET PO SCH ×2 (01:00→09:00)
[2024-06-12] MEDS ORDERED: LACTATED RINGER'S 1,000 ML IV SCH (05:00)
[2024-06-12 06:05] LABS: HEMATOCRIT 31.5 % (35.0-50.0); HEMOGLOBIN 10.8 g/dL (12.0-18.0); MCH 29.4 (27-36); MCHC 34.4 g/dl (30-36); MCV 85.5 fl (81-99); RBC 3.68 M/ul (4.3-5.7); RDW 13.9 (10.5-15.0)
--- NOTE | 2024-06-12 08:00 | PR ---
[facility] [address] [facility] [place], [place] [address] Signed PP Progress Notes Datetime Report Generated by CPN: 06/12/2024 08:00 SUBJECTIVE: [id number] Pain: Within Normal Limits Nausea/Vomiting: Denies Flatus: Yes Bowel Movement: No Vital Signs: [id number] Vital Signs: Reviewed; Within Normal Limits EXAM: Ongoing Cardiovascular: Normal Respiratory: Normal Abdomen/Uterus: Normal Lochia: Normal Vulva/Perineum: Not Done Breasts: Not Done CVA Tenderness: Normal Extremities: Normal Incision: Normal Progress: Normal Exam Comments: Fundus firm U-2 nontender. Incision bandaged and dry. Baby on chest IMPRESSION/PLAN/PROCEDURES: [id number] Impression: Normal Progression Plan: Continue Present Management Progress Notes: Pt seen and examined. Doing well. BPs good. Scant lochia. No concerns. well. Anticipate d/c home tomorrow. Signing Physician: Melvina Alston DO Copies: ~ *Electronically Signed* 06/12/24 0800 MELVINA ALSTON (MAYRA) DO PATIENT NAME: IMANI HARPER BELINDA PROGRESS NOTE DATE OF : 97 PHYSICIAN: MELVINA ALSTON) DO RPT #: [id number] REPORT IS CONFIDENTIAL AND NOT TO BE RELEASED WITHOUT AUTHORIZATION
[2024-06-12] MEDS ORDERED: ENOXAPARIN SODIUM 40 MG/0.4 ML SYR SUB-Q SCH (09:00)
[2024-06-12] MEDS ORDERED: ondansetron HCL 4 MG/2 ML VIAL IV PRN (09:00)
[2024-06-12] MEDS ORDERED: KETOROLAC TROMETHAMINE 30 MG/ML VIAL IV SCH (10:00)
[2024-06-12] MEDS ORDERED: IBUPROFEN 600 MG TAB PO SCH (14:00)
--- NOTE | 2024-06-13 08:55 | PR ---
[facility] [address] [place], [place] [address] Signed PP Progress Notes Datetime Report Generated by CPN: 06/13/2024 08:55 SUBJECTIVE: [id number] Pain: Within Normal Limits Nausea/Vomiting: Denies Flatus: Yes Bowel Movement: No Vital Signs: [id number] Vital Signs: Reviewed; Within Normal Limits EXAM: Ongoing Cardiovascular: Normal Respiratory: Normal Abdomen/Uterus: Normal Lochia: Normal Vulva/Perineum: Not Done Breasts: Not Done CVA Tenderness: Normal Extremities: Normal Incision: Normal Progress: Normal Exam Comments: Fundus firm U-2 nontender. Incision well healing w/ charity in place IMPRESSION/PLAN/PROCEDURES: [id number] Impression: Normal Progression Plan: Discharge Progress Notes: Pt seen and examined. Doing well. Ambulating, voiding, and tolerating full diet. Pain and lochia minimal. well. No fevers/chills/OCAMPO. BPs normal. No antihypertensives required. Discharge home. Reviewed d/c instruction. F/U 2 days for bp check and staple removal on FBC with Lupe Alcaraz RN. Reviewed d/c medications and instructions in detail. Reviewed hematology recommendation re tranexamic acid. Call with any s/sx pp PreE or pp hemorrhage. Undecided on pp contraception. All questions answered. Signing Physician: Melvina Alston DO Copies: ~ *Electronically Signed* 06/13/24 6845 MELVINA ALSTON (MAYRA) DO PATIENT NAME: IMANI HARPER PROGRESS NOTE DATE OF : 97 PHYSICIAN: MELVINA ALSTON (JD) DO RPT #: [id number] REPORT IS CONFIDENTIAL AND NOT TO BE RELEASED WITHOUT AUTHORIZATION
== END 2024-06-13 11:05 | disposition home or self-care (01) | DRG 788 ==
LOC: FBC 06-11 05:05
PROVIDERS: ADMIT Obstetrics & Gynecology; ATTEND Obstetrics & Gynecology
PROC: 10907ZC Drainage of Amniotic Fluid, Therapeutic from Products of Conception, Via Natural or Artificial Opening (ICD-10-PCS; principal; 2024-06-11 07:30)
PROC: 10D00Z1 Extraction of Products of Conception, Low, Open Approach (ICD-10-PCS; principal; 2024-06-11 07:30)
DX: O14.94 Unspecified pre-eclampsia, complicating childbirth (principal); Z3A.37 37 weeks gestation of pregnancy; Z37.0 Single live birth; O34.211 Maternal care for low transverse scar from previous cesarean delivery; Z91.018 Allergy to other foods; Z91.040 Latex allergy status; Z90.89 Acquired absence of other organs; Z98.890 Other specified postprocedural states
CPT/HCPCS: 01961; 36415; 76942; 80307; 85027; 86850; 86900; 86901; 86922; A9270; J0690; J1100; J1650; J1885; J2003; J2274; J2371; J2405; J2590; J2795; J3010; J7121